=== PATIENT | female | born 1975 | race Hispanic/Latino ===

== ENCOUNTER 2020-01-05 16:43 | Emergency (ER) | payer OTHER ==
[~2020-01-05] VITALS: Ht 160 cm; Wt 96.2 kg
== END 2020-01-05 17:15 | disposition home or self-care (01) ==
LOC: ER 16:58
DX: U07.1 COVID-19 (principal); R50.9 Fever, unspecified; R05 Cough; J45.909 Unspecified asthma, uncomplicated
CPT/HCPCS: 99282

== ENCOUNTER 2020-01-07 16:52 | Emergency (ER) | payer OTHER ==
[~2020-01-07] VITALS: Ht 160 cm; Wt 96.2 kg
--- OUTSIDE RECORDS SUMMARY | 2020-01-07 17:01 | XMS REPORT | Continuity of Care Document ---
Author Author [facility] t Organization [facility] Address [address] [place] [address] Phone Unavailable Care Team Providers Care Director Money Name Role Phone NO, PCP PCP Unavailable Payers Payer Name Policy Type Policy Number Effective Date Expiration Date Vlad jameson Miscellaneous Hmo [id number] [facility] Problems Condition Name Condition Details Condition Category Status Onset Date Resolution Date Last Treatment Date Treating Clinician Comments Source Problem Condition Active [facility] Allergies, Adverse Reactions, Alerts Allergy Name Allergy Type Status Severity Reaction(s) Onset Date Inacti ve Date Treating Clinician Comments Source Penicillin Allergy to substance Active Mild HIVES 2020-01-05 00:00:00 [facility] Penicillins DA Active SV 2018-12-28 00:00:00 [facility] No Known Allergies DA Active U 2017-02-26 00:00:00 [facility] Social History Social Habit Start Date Stop Date Quantity Comments Source Sex Assigned At 1975 00:00:00 1975 00:00:00 Female [facility] Medications This patient has no known medications. Vital Signs Vital Name Observation Time Observation Value Comments Source Oxygen saturation by Pulse oximetry 2020-01-05 16:48:00 100 /min [facility] Weight 2020-01-05 16:48:00 212 [lb_av] [facility] BMI (Body Mass Index) 2020-01-05 16:48:00 37.6 kg/m2 [facility] Procedures This patient has no known procedures. Plan of Care Planned Activity Planned Date Details Comments Source Instructions COVID-19: 05/09/2019 [facility] Encounters Start Date/Time End Date/Time Encounter Type Admission Type Attendi [facility] Facility Care Department Encounter ID Source 2020-01-05 16:58:00 2020-01-05 17:15:00 Departed Emergency Room [facility] [id number] [facility] Results Test Description Test Time Test Comments Results Result Comments Source STREPTOCOCCUS PCR SCREEN 2019-02-14 09:05:00 Test Item STREPTOCOCCUS DYSGALACTIAE (test code = STREPGC) NEGATIVE FOR G/C N EGATIVE STREPA MOLECULAR (test code = STREPAMOL) NEGATIVE FOR GRP A NEGATIV E UR HCG [id number] 23:59:00* Test Item Value Reference Range Interpretation Comments UR HCG QUAL (test code = HCGQLU) NEGATIVE 43WEThis HCGQL test is NOT applicable for MALE patients.Check with nurse about probable order error.If Tumor Marker Test needed, nurse should order test "HCGTU"(Test #[id number]) - XR CHEST 1 [id number] 23:26:00 Name: JEAN LONDONOJO PICKARD [facility] : 1975 Age/S:43 /F [address] [facility] Unit#:[id number] Loc: [place] [address] Phys: Jarod Betancur MD Dis Date: PHONE #: [phone] Status: REG ER FAX #: [phone] Exam Date: 02/13/2019 Reason: CHEST PAIN EXAMS: CPT CODE: [id number] XR CHEST 1 V [id number] EXAM: - XR CHEST 1 V HISTORY: Chest pain. FINDINGS: Single AP view of the chest is provided. Heart size and vascularity are within normal limits. The lungs are clear of focal consolidation. No effusion, pneumothorax, or acute osseous abnormality. IMPRESSION: No radiographic evidence of acute cardiopulmonary process. at 2326 Reported and signed by: Artur Stein MD CC: Jarod Betancur MD Technologist: MAKAYLA BARRERA RT(R),CT Trnscrpt Data: 02/13/2019 (0871) [id number] Orig Print D/T: S: 02/13/2019 (5464) PAGE 1 Signed Report BASIC METABOLIC [id number] 22:24:00* Test Item Value Reference Range Interpretation Comments SODIUM (test code = NA) 138 mmol/L 135-148 N POTASSIUM (test code = K) 3.6 mmol/L 3.5-5.1 N CHLORIDE (test code = CL) 99 mmol/L 101-109 L CARBON DIOXIDE (test code = CO2) 25.4 mmol/L 21-32 N ANION GAP (test code = GAP) 17 mmol/L 10-20 N GLUCOSE (test code = GLU) 102 mg/dL 74-106 N BLOOD UREA NITROGEN (test code = BUN) 10 mg/dL 3-21 N GLOMERULAR FILTRATION RATE (test code = GFR) > 60 mL/min >=60 Estimated GFR by using Modified MDRD formula.Chronic kidney disease is defined as either kidney damageor GFR <60 mL/min/1.73 m2 for >3 months. CREATININE (test code = CREAT) 0.75 mg/dL 0.55-1.3 N BUN/CREATININE RATIO (test code = BUN/CREA) 13.3 10-20 N CALCIUM (test code = CA) 8.1 mg/dL 8.4-10.2 L HEPATIC FUNCTION [id number] 22:24:00* Test Item Value Reference Range Interpretation Comments TOTAL PROTEIN (test code = PROT) 7.3 g/dL 6.5-8.4 N ALBUMIN (test code = ALB) 3.4 g/dL 3.4-4.8 N GLOBULIN (test code = GLOB) 3.9 G/DL 1-10 N ALBUMIN/GLOBULIN RATIO (test code = A/G) 0.9 RATIO 0.75-1.50 N BILIRUBIN TOTAL (test code = BILT) 0.30 mg/dL 0.0-1.0 N BILIRUBIN DIRECT (test code = BILD) 0.10 mg/dL 0.0-0.30 N SGOT/AST (test code = AST) 15 U/L 6-32 N SGPT/ALT (test code = ALT) 26 U/L 12-78 N N ote: Change in REFERENCE RANGE due to new reagent method. ALKALINE PHOSPHATASE TOTAL (test code = ALKP) 115 U/L 38-126 N [id number] 22:24:00* Test Item Value Reference Range Interpretation Comments LIPASE (test code = LIP) 119 U/L 128-270 L [id number] 22:24:00* Test Item Value Reference Range Interpretation Comments MAGNESIUM (test code = MAG) 1.5 mg/dL 1.6-2.3 L BASIC METABOLIC [id number] 22:15:00* Test Item Value Reference Range Interpretation Comments SODIUM (test code = NA) 138 mmol/L 135-148 N POTASSIUM (test code = K) 3.6 mmol/L 3.5-5.1 N CHLORIDE (test code = CL) 99 mmol/L 101-109 L CARBON DIOXIDE (test code = CO2) 25.4 mmol/L 21-32 N ANION GAP (test code = GAP) 17 mmol/L 10-20 N GLUCOSE (test code = GLU) 102 mg/dL 74-106 N BLOOD UREA NITROGEN (test code = BUN) 10 mg/dL 3-21 N GLOMERULAR FILTRATION RATE (test code = GFR) > 60 mL/min >=60 Estimated GFR by using Modified MDRD formula.Chronic kidney disease is defined as either kidney damageor GFR <60 mL/min/1.73 m2 for >3 months. CREATININE (test code = CREAT) 0.75 mg/dL 0.55-1.3 N BUN/CREATININE RATIO (test code = BUN/CREA) 13.3 10-20 N CALCIUM (test code = CA) 8.1 mg/dL 8.4-10.2 L HEPATIC FUNCTION [id number] 22:15:00* Test Item Value Reference Range Interpretation Comments TOTAL PROTEIN (test code = PROT) gram/dL 6.4-8.2 ALBUMIN (test code = ALB) g/dL 3.4-5.0 GLOBULIN (test code = GLOB) g/dL 2.7-4.2 ALBUMIN/GLOBULIN RATIO (test code = A/G) 0.75-1.50 BILIRUBIN TOTAL (test code = BILT) mg/dL 0.2-1.2 BILIRUBIN DIRECT (test code = BILD) mg/dL 0.0-0.20 SGOT/AST (test code = AST) IUnit/L 15-37 SGPT/ALT (test code = ALT) U/L 10-69 ALKALINE PHOSPHATASE TOTAL (test code = ALKP) IUnit/L 45-117 [id number] 22:15:00* Test Item Value Reference Range Interpretation Comments LIPASE (test code = LIP) Unit/L 144-286 [id number] 22:15:00* Test Item Value Reference Range Interpretation Comments MAGNESIUM (test code = MAG) mg/dL 1.8-2.4 URINALYSIS [id number] 22:08:00* Test Item Value Reference Range Interpretation Comments UA COLOR (test code = COLU) YELLOW YELLOW UA APPEARANCE (test code = APPU) CLEAR CLEAR UA GLUCOSE DIPSTICK (test code = DGLUU) norm mg/dL NEGATIVE UA BILIRUBIN DIPSTICK (test code = BILU) NEGATIVE mg/dL NEGATIVE UA KETONE DIPSTICK (test code = KETU) neg mg/dL NEGATIVE UA SPECIFIC GRAVITY (test code = SGU) 1.015 1.001-1.035 UA BLOOD DIPSTICK (test code = LOUISE) 25 (1+) Sam/uL NEGATIVE A UA PH DIPSTICK (test code = BABAK) 5.0 5.0-8.0 UA PROTEIN DIPSTICK (test code = PROU) neg mg/dL Neg-15 UA UROBILINIOGEN DIPSTICK (test code = URO) norm mg/dL 0.0-0.2 UA NITRITE DIPSTICK (test code = MAYE) NEGATIVE NEGATIVE UA LEUKOCYTE ESTERASE DIPSTICK (test code = LEUU) neg uL NEGA TIVE UA WBC (test code = WBCU) 0-2 per HPF 0-5 UA RBC (test code = RBCU) 0-3 per HPF 0-5 UA EPITHELIAL CELLS (test code = EPIU) Few (2-5/hpf) per HPF Few UA BACTERIA (test code = BACU) TRACE per HPF NONE Urine Source? Clean CatchCBC W/O [id number] 22:00:00* Test Item Value Reference Range Interpretation Comments WHITE BLOOD CELL (test code = WBC) 6.8 K/mm3 4.5-12.5 N RED BLOOD CELL (test code = RBC) 4.11 mill/mm3 3.7-5.2 N HEMOGLOBIN (test code = HGB) 10.2 gram/dL 11.5-15.5 L HEMATOCRIT (test code = HCT) 33.8 % 36.0-46.0 L MEAN CELL VOLUME (test code = MCV) 82.2 fL 80-98 N MEAN CELL HGB (test code = MCH) 24.8 picogram 27.0-33.0 L MEAN CELL HGB CONCETRATION (test code = MCHC) 30.2 gram/dL 33.0-36. 0 L RED CELL DISTRIBUTION WIDTH (test code = RDW) 15.3 % 11.6-16. 2 N RED CELL DISTRIBUTION WIDTH SD (test code = RDW-SD) 46.7 fL 37 .0-51.0 N PLATELET COUNT (test code = PLT) 226 K/mm3 150-450 N MEAN PLATELET VOLUME (test code = MPV) 11.0 fL 6.7-11.0 N BASIC METABOLIC [id number] 22:11:00* Test Item Value Reference Range Interpretation Comments SODIUM (test code = NA) 135 mmol/L 136-145 L POTASSIUM (test code = K) 3.3 mmol/L 3.5-5.1 L CHLORIDE (test code = CL) 101 mmol/L 101-109 N CARBON DIOXIDE (test code = CO2) 25.3 mmol/L 21-32 N ANION GAP (test code = GAP) 12 mmol/L 10-20 N GLUCOSE (test code = GLU) 113 mg/dL 74-106 H BLOOD UREA NITROGEN (test code = BUN) 10 mg/dL 3-21 N GLOMERULAR FILTRATION RATE (test code = GFR) > 60 mL/min >=60 Estimated GFR by using Modified MDRD formula.Chronic kidney disease is defined as either kidney damageor GFR <60 mL/min/1.73 m2 for >3 months. CREATININE (test code = CREAT) 0.66 mg/dL 0.55-1.3 N BUN/CREATININE RATIO (test code = BUN/CREA) 15.2 10-20 N CALCIUM (test code = CA) 8.2 mg/dL 8.4-10.2 L HEPATIC FUNCTION [id number] 22:11:00* Test Item Value Reference Range Interpretation Comments TOTAL PROTEIN (test code = PROT) 7.0 g/dL 6.5-8.4 N ALBUMIN (test code = ALB) 3.2 g/dL 3.4-4.8 L GLOBULIN (test code = GLOB) 3.8 G/DL 1-10 N ALBUMIN/GLOBULIN RATIO (test code = A/G) 0.84 RATIO 0.75-1.50 N BILIRUBIN TOTAL (test code = BILT) 0.40 mg/dL 0.0-1.0 N BILIRUBIN DIRECT (test code = BILD) 0.10 mg/dL 0.0-0.30 N SGOT/AST (test code = AST) 19 U/L 6-32 N SGPT/ALT (test code = ALT) 28 U/L 12-78 N N ote: Change in REFERENCE RANGE due to new reagent method. ALKALINE PHOSPHATASE TOTAL (test code = ALKP) 83 U/L 38-126 N [id number] 22:11:00* Test Item Value Reference Range Interpretation Comments LIPASE (test code = LIP) 65 U/L 128-270 L URINALYSIS [id number] 22:04:00* Test Item Value Reference Range Interpretation Comments UA COLOR (test code = COLU) DARK YELLOW YELLOW A UA APPEARANCE (test code = APPU) HAZY CLEAR A UA GLUCOSE DIPSTICK (test code = DGLUU) norm mg/dL NEGATIVE UA BILIRUBIN DIPSTICK (test code = BILU) NEGATIVE mg/dL NEGATIVE UA KETONE DIPSTICK (test code = KETU) neg mg/dL NEGATIVE UA SPECIFIC GRAVITY (test code = SGU) 1.015 1.001-1.035 UA BLOOD DIPSTICK (test code = LOUISE) 10 (Trace) Sam/uL NEGATIVE A UA PH DIPSTICK (test code = BABAK) 7.0 5.0-8.0 UA PROTEIN DIPSTICK (test code = PROU) 15 (TRACE) mg/dL Neg-15 A UA UROBILINIOGEN DIPSTICK (test code = URO) 4 mg/dL (2+) mg/dL 0.0 -0.2 A UA NITRITE DIPSTICK (test code = MAYE) NEGATIVE NEGATIVE UA LEUKOCYTE ESTERASE DIPSTICK (test code = LEUU) 25 Mathew/uL (Tra ce) uL NEGATIVE A UA WBC (test code = WBCU) 0-5 per HPF 0-5 UA RBC (test code = RBCU) 0-3 per HPF 0-5 UA EPITHELIAL CELLS (test code = EPIU) Few (2-5/hpf) per HPF Few UA BACTERIA (test code = BACU) TRACE per HPF NONE UA MUCUS (test code = MUCU) MODERATE per LPF NONE-FEW A Urine Source? Clean CatchUR HCG [id number] 22:04:00* Test Item Value Reference Range Interpretation Comments UR HCG QUAL (test code = HCGQLU) NEGATIVE This HCGQL test is NOT applicable for MALE patients.Check with nurse about probable order error.If Tumor Marker Test needed, nurse should order test "HCGTU"(Test #[id number]) Urine Source? Clean CatchURINALYSIS [id number] 21:57:00* Test Item Value Reference Range Interpretation Comments UA COLOR (test code = COLU) DARK YELLOW YELLOW A UA APPEARANCE (test code = APPU) HAZY CLEAR A UA GLUCOSE DIPSTICK (test code = DGLUU) norm mg/dL NEGATIVE UA BILIRUBIN DIPSTICK (test code = BILU) NEGATIVE mg/dL NEGATIVE UA KETONE DIPSTICK (test code = KETU) neg mg/dL NEGATIVE UA SPECIFIC GRAVITY (test code = SGU) 1.015 1.001-1.035 UA BLOOD DIPSTICK (test code = LOUISE) 10 (Trace) Sam/uL NEGATIVE A UA PH DIPSTICK (test code = BABAK) 7.0 5.0-8.0 UA PROTEIN DIPSTICK (test code = PROU) 15 (TRACE) mg/dL Neg-15 A UA UROBILINIOGEN DIPSTICK (test code = URO) 4 mg/dL (2+) mg/dL 0.0 -0.2 A UA NITRITE DIPSTICK (test code = MAYE) NEGATIVE NEGATIVE UA LEUKOCYTE ESTERASE DIPSTICK (test code = LEUU) 25 Mathew/uL (Tra ce) uL NEGATIVE A UA WBC (test code = WBCU) per HPF 0-5 UA RBC (test code = RBCU) per HPF 0-5 UA EPITHELIAL CELLS (test code = EPIU) per HPF Few UA BACTERIA (test code = BACU) per HPF NONE Urine Source? Clean CatchUR HCG [id number] 21:57:00* Test Item Value Reference Range Interpretation Comments UR HCG QUAL (test code = HCGQLU) Urine Source? Clean CatchCBC W/O [id number] 21:47:00* Test Item Value Reference Range Interpretation Comments WHITE BLOOD CELL (test code = WBC) 8.7 K/mm3 4.5-12.5 N RED BLOOD CELL (test code = RBC) 4.35 mill/mm3 3.7-5.2 N HEMOGLOBIN (test code = HGB) 11.2 gram/dL 11.5-15.5 L HEMATOCRIT (test code = HCT) 37.2 % 36.0-46.0 N MEAN CELL VOLUME (test code = MCV) 85.5 fL 80-98 N MEAN CELL HGB (test code = MCH) 25.7 picogram 27.0-33.0 L MEAN CELL HGB CONCETRATION (test code = MCHC) 30.1 gram/dL 33.0-36. 0 L RED CELL DISTRIBUTION WIDTH (test code = RDW) 14.5 % 11.6-16. 2 N RED CELL DISTRIBUTION WIDTH SD (test code = RDW-SD) 46.6 fL 37 .0-51.0 N PLATELET COUNT (test code = PLT) 255 K/mm3 150-450 N MEAN PLATELET VOLUME (test code = MPV) 10.9 fL 6.7-11.0 N - XR CHEST 2 [id number] 22:00:00 Name: JO LONDONO [facility] : 1975 Age/S:43 /F [address] [facility] Unit#:[id number] Loc: [place] [address] Phys: Veena Sauceda INFUSION RN Dis Date: PHONE #: [phone] Status: REG ER FAX #: [phone] Exam Date: 08/09/2018 Reason: cough x 3 weeks EXAMS: CPT CODE: [id number] XR CHEST 2 V [id number] REASON FOR EXAM: cough x 3 weeks Exam Order Date: 08/09/2018 9:03 PM Ordering Yohana: Veena Sauceda NP PROCEDURE: - XR CHEST 2 V COMPARISON: FINDINGS: PA and lateral views of the chest show clear lungs without evidence of consolidation. No evidence of effusion. The heart size is within normal limits. Pulmonary vasculatures are unremarkable. The osseous structures are grossly intact. IMPRESSION: No active disease. at 2200 Reported and signed by: Pedro Pablo Suresh M.D. CC: Technologist: MAKAYLA BARRERA RT(R),CT Trnscrpt Data: 08/09/2018 (2199) Jhonatan Orig Print D/T: S: 08/09/2018 (9) PAGE 1 Signed Report
[2020-01-07] MEDS ORDERED: PANTOPRAZOLE 40 MG 10ML VIAL IV STA (17:09)
[2020-01-07] MEDS ORDERED: ONDANSETRON HCL INJ 2MG/ML 2ML 2 MG/ML VIAL IV STA (17:09)
[2020-01-07] MEDS ORDERED: SODIUM CHLORIDE 0.9% 1000ML 1,000 ML IV STA (17:09)
[2020-01-07] MEDS ORDERED: IBUPROFEN 800MG/ 200ML 800 MG in SODIUM CHLORIDE 0.9% 250ML 250 ML IV ONE (17:15)
[2020-01-07] MEDS ORDERED: IBUPROFEN 800 MG/8 ML VIAL IV ONE (17:38)
[2020-01-07] MEDS ORDERED: SODIUM CHLORIDE 0.9% 250ML 250 ML ONE (17:38)
--- NOTE | 2020-01-07 17:43 | NUR ---
TALKED TO GEOVANY REGARDING COVID RAPID HERE
[2020-01-07] MEDS ORDERED: DEXAMETHASONE SOD PHOS 10 MG/1 ML VIAL IV ONE (17:45)
[2020-01-07] MEDS ORDERED: CEFTRIAXONE SOD 1 GM/NS 50 ML 50 ML IV ONE (17:45)
[2020-01-07] MEDS ORDERED: AZITHROMYCIN 500MG/NS 250 ML 250 ML IV ONE (17:45)
[2020-01-07 17:50] LABS: BASOPHILS % 0.2 % (0.0-1.0); HEMATOCRIT 31.1 % (34.2-44.1); HEMOGLOBIN 8.7 g/dL (12.0-16.0); LYMPHOCYTES # (AUTO) 0.5 (1.0-3.2); LYMPHOCYTES % 9.8 % (18.0-39.1); MEAN CORPUSCULAR HEMOGLOBIN 20.7 pg (28-32); MONOCYTES # (AUTO) 0.3 (0.2-0.8); MONOCYTES % 5.3 % (4.4-11.3); NEUTROPHILS # (AUTO) 4.1 (2.1-6.9); NEUTROPHILS % 84.1 % (38.7-80.0); PLATELET COUNT 162 x10e3/uL (140-360); RED CELL DISTRIBUTION WIDTH 16.8 % (11.7-14.4)
[2020-01-07 18:07] LABS: STREPTOCOCCUS GRP A ANTIGEN NEGATIVE (NEGATIVE)
[2020-01-07 18:08] LABS: INR 0.86; PROTHROMBIN TIME 12.2 seconds (11.9-14.5)
[2020-01-07 18:13] LABS: INFLUENZAE A&B ANTIGEN (RAPID) NEGATIVE (NEGATIVE)
[2020-01-07 18:17] LABS: ALANINE AMINOTRANSFERASE 99 IU/L (0-55); ALBUMIN 3.5 g/dL (3.5-5.0); ALBUMIN/GLOBULIN RATIO 0.9 (0.8-2.0); ALKALINE PHOSPHATASE 95 IU/L (40-150); ANION GAP 13.2 mmol/L (8-16); BLOOD UREA NITROGEN 8 mg/dL (7-26); BUN/CREATININE RATIO 12 (6-25); CALCIUM 8.5 mg/dL (8.4-10.2); CARBON DIOXIDE 25 mmol/L (22-29); CHLORIDE 103 mmol/L (98-107); CREATINE KINASE 55 IU/L (29-168); CREATININE, SERUM 0.68 mg/dL (0.57-1.11); EST GLOMERULAR FILTRATION RATE > 60 ML/MIN (60-); GLUCOSE 127 mg/dL (74-118); MAGNESIUM 1.7 MG/DL (1.3-2.1); POTASSIUM 3.2 mmol/L (3.5-5.1); SODIUM 138 mmol/L (136-145)
[2020-01-07 18:21] LABS: PARTIAL THROMBOPLASTIN TIME 34.8 seconds (23.8-35.5)
--- NOTE | 2020-01-07 18:25 | Emergency Department Note ---
History of Present Illnes History of Present Illness Chief Complaint: COVID PUI History of Present Illness This is a 44 year old female with 6 day h/o of fevers myalgias and n/v . Historian: Patient Arrival Mode: Car Onset (how long ago): day(s) (6) Radiation: Reports non-radiation Severity: moderate Onset quality: gradual Duration (how long): week(s) (1) Timing of current episode: constant Progression: worsening Chronicity: new Context: Reports recent illness Relieving factors: none Exacerbating factors: none Associated symptoms: Reports shortness of breath Treatments prior to arrival: none Past Medical/Family History Physician Review I have reviewed the patient's past medical and family history. Any updates have been documented here. Past Medical History Recent Fever: Yes Clinical Suspicion of Infectio: Yes New/Unexplained Change in Ment: No Past Medical History: Asthma Past Surgical History: Tubal Ligation, Social History Smoking Cessation: Never Smoker Alcohol Use: None Any Illegal Drug Use: No Review of Systems Review of Systems Constitutional: Reports fever, Reports malaise EENTM: Reports no symptoms Cardiovascular: Reports no symptoms Respiratory: Reports no symptoms Gastrointestinal: Reports nausea, Reports vomiting Genitourinary: Reports no symptoms Musculoskeletal: Reports no symptoms Integumentary: Reports no symptoms Neurological: Reports no symptoms Psychological: Reports no symptoms Endocrine: Reports no symptoms Hematological/Lymphatic: Reports no symptoms Physical Exam Related Data Allergies: Coded Allergies: Penicillins (Verified Allergy, Mild, HIVES, 01/05/20) Triage Vital Signs Vital Signs Date Time Temp Pulse Resp B/P (MAP) Pulse Ox O2 Delivery O2 Flow Rate FiO2 01/07/20 17:01 103.0 100 24 108/64 95 Room Air Vital signs reviewed: Yes Physical Exam CONSTITUTIONAL Constitutional: Present morbidly obese, Present ill appearing HENT HENT: Present normocephalic, Present atraumatic, Present oropharynx clear/moist, Present nose normal HENT L/R: Present left ext ear normal, Present right ext ear normal EYES Eyes: Reports PERRL, Reports conjunctivae normal NECK Neck: Present ROM normal PULMONARY Pulmonary: Present effort normal, Present breath sounds normal CARDIOVASCULAR Cardiovascular: Present regular rhythm, Present heart sounds normal, Present capillary refill normal, Present normal rate GASTROINTESTINAL Abdominal: Present soft, Present nontender, Present bowel sounds normal GENITOURINARY Genitourinary: Present exam deferred SKIN Skin: Present warm, Present dry MUSCULOSKELETAL Musculoskeletal: Present ROM normal NEUROLOGICAL Neurological: Present alert, Present oriented x 3, Present no gross motor or sensory deficits PSYCHOLOGICAL Psychological: Present mood/affect normal, Present judgement normal Results Laboratory Result Diagram: 01/07/20 1729 01/07/20 1729 Laboratory Laboratory Tests Test 01/07/20 17:32 01/07/20 17:29 Influenza Virus Types A,B Antigen Negative (NEGATIVE) Group A Streptococcus Screen Negative (NEGATIVE) White Blood Count 4.88 x10e3/uL (4.8-10.8) Red Blood Count 4.20 x10e6/uL (3.6-5.1) Hemoglobin 8.7 g/dL (12.0-16.0) Hematocrit 31.1 % (34.2-44.1) Mean Corpuscular Volume 74.0 fL (81-99) Mean Corpuscular Hemoglobin 20.7 pg (28-32) Mean Corpuscular Hemoglobin Concent 28.0 g/dL (31-35) Red Cell Distribution Width 16.8 % (11.7-14.4) Platelet Count 162 x10e3/uL (140-360) Neutrophils (%) (Auto) 84.1 % (38.7-80.0) Lymphocytes (%) (Auto) 9.8 % (18.0-39.1) Monocytes (%) (Auto) 5.3 % (4.4-11.3) Eosinophils (%) (Auto) 0.0 % (0.0-6.0) Basophils (%) (Auto) 0.2 % (0.0-1.0) Neutrophils # (Auto) 4.1 (2.1-6.9) Lymphocytes # (Auto) 0.5 (1.0-3.2) Monocytes # (Auto) 0.3 (0.2-0.8) Eosinophils # (Auto) 0.0 (0.0-0.4) Basophils # (Auto) 0.0 (0.0-0.1) Absolute Immature Granulocyte (auto 0.03 x10e3/uL (0-0.1) Sodium Level 138 mmol/L (136-145) Potassium Level 3.2 mmol/L (3.5-5.1) Chloride Level 103 mmol/L (98-107) Carbon Dioxide Level 25 mmol/L (22-29) Anion Gap 13.2 mmol/L (8-16) Blood Urea Nitrogen 8 mg/dL (7-26) Creatinine 0.68 mg/dL (0.57-1.11) Estimat Glomerular Filtration Rate > 60 ML/MIN (60-) BUN/Creatinine Ratio 12 (6-25) Glucose Level 127 mg/dL (74-118) Calcium Level 8.5 mg/dL (8.4-10.2) Magnesium Level 1.7 MG/DL (1.3-2.1) Total Bilirubin 0.3 mg/dL (0.2-1.2) Aspartate Amino Transf (AST/SGOT) 102 IU/L (5-34) Alanine Aminotransferase (ALT/SGPT) 99 IU/L (0-55) Alkaline Phosphatase 95 IU/L (40-150) Creatine Kinase 55 IU/L (29-168) B-Type Natriuretic Peptide 15.2 pg/mL (0-100) Total Protein 7.2 g/dL (6.5-8.1) Albumin 3.5 g/dL (3.5-5.0) Globulin 3.7 g/dL (2.3-3.5) Albumin/Globulin Ratio 0.9 (0.8-2.0) Imaging Imaging results reviewed: Yes Impressions [place] [address] Patient Name: JO PENA MR #: [id number] : 1975 Age/Sex: 44/F Req #: [id number] Adm Physician: Ordered by: CHRISTINA GARCIA MD Report #: [id number] Location: ER Room/Bed: Procedure: [id number] DX/CHEST SINGLE (PORTABLE) Exam Date: 01/07/20 Exam Time: 1800 REPORT STATUS: Signed EXAMINATION: CHEST SINGLE (PORTABLE) INDICATION: COUGH F/C, N/V, COUGH COMPARISON: None FINDINGS: TUBES and LINES: None. LUNGS: Normal lung volumes. There is multifocal patchy airspace opacities throughout both lungs. PLEURA: No pleural effusion or pneumothorax. HEART AND MEDIASTINUM: The cardiomediastinal silhouette is unremarkable. BONES AND SOFT TISSUES: No acute osseous lesion. Soft tissues are unremarkable. UPPER ABDOMEN: No free air under the diaphragm. IMPRESSION: Multifocal patchy airspace opacities throughout both lungs, most compatible with multifocal pneumonia. Signed by: Yony Maradiaga MD on 01/07/2020 6:50 PM Dictated By: YONY MARADIAGA MD 49 Transcribed By: RADHA on 01/07/201849 COPY TO: CHRISTINA GARCIA MD~ Assessment & Plan Medical Decision Making MDM Diff Dx : URI, COVID-19 URI, PNA, sepsis, PE Reassessment Reassessment time: 18:[address] Valdez accepted patient ST BS Assessment & Plan Final Impression: (1) Hypoxia (2) COVID-19 Last Vital Signs Date Time Temp Pulse Resp B/P (MAP) Pulse Ox O2 Delivery O2 Flow Rate FiO2 01/07/20 17:01 103.0 100 24 108/64 95 Room Air Medications in the ED Pantoprazole Sodium 40 mg ONCE STAT IV Last administered on 01/07/20at 17:56; Admin Dose 40 MG; Start 01/07/20 at 17:09; Stop 01/07/20 at 17:16; Status DC Ondansetron HCl 4 mg ONCE STAT IV Last administered on 01/07/20at 17:56; Admin Dose 4 MG; Start 01/07/20 at 17:09; Stop 01/07/20 at 17:16; Status DC Sodium Chloride 1,000 ml @ 0 mls/hr Q0M STAT IV Last administered on 0at 17:56; Admin Dose 999 MLS/HR; Start 01/07/20 at 17:09; Stop 01/07/20 at 17:15; Status DC Ibuprofen 800 mg/ Sodium Chloride 450 ml @ 500 mls/hr ONCE ONCE IV Last administered on 01/07/20at 17:56; Admin Dose 500 MLS/HR; Start 01/07/20 at 17:15; Stop 01/07/20 at 18:08; Status DC Sodium Chloride 250 ml @ ud STK-MED ONCE .ROUTE ; Start 01/07/20 at 17:38; Stop 01/07/20 at 17:31; Status DC Ibuprofen 800 mg STK-MED ONCE IV ; Start 01/07/20 at 17:38; Stop 01/07/20 at 17:32; Status DC Dexamethasone Sodium Phosphate 10 mg ONCE ONCE IV Last administered on 01/07/20at 18:08; Admin Dose 10 MG; Start 01/07/20 at 17:45; Stop 01/07/20 at 17:48; Status DC Ceftriaxone Sodium 50 ml @ 100 mls/hr ONCE ONCE IV Last administered on 01/07/20at 18:08; Admin Dose 100 MLS/HR; Start 01/07/20 at 17:45; Stop 01/07/20 at 18:14; Status DC Azithromycin 250 ml @ 200 mls/hr NOW ONCE IV ; Start 01/07/20 at 17:45; Stop 01/07/20 at 18:59 ARACELY BOYER DO Jan 07, 2020 18:25
--- NOTE | 2020-01-07 18:53 | Diagnostic Imaging Report ---
EXAMINATION: CHEST SINGLE (PORTABLE) INDICATION: COUGH F/C, N/V, COUGH COMPARISON: None FINDINGS: TUBES and LINES: None. LUNGS: Normal lung volumes. There is multifocal patchy airspace opacities throughout both lungs. PLEURA: No pleural effusion or pneumothorax. HEART AND MEDIASTINUM: The cardiomediastinal silhouette is unremarkable. BONES AND SOFT TISSUES: No acute osseous lesion. Soft tissues are unremarkable. UPPER ABDOMEN: No free air under the diaphragm. IMPRESSION: Multifocal patchy airspace opacities throughout both lungs, most compatible with multifocal pneumonia. Signed by: Amira De La Cruz MD on 01/07/2020 6:50 PM
== END 2020-01-07 20:27 | disposition other institution (70) ==
LOC: ER 16:59
DX: U07.1 COVID-19 (principal); R09.02 Hypoxemia; R50.9 Fever, unspecified
CPT/HCPCS: 36415; 71045; 80053; 82550; 82553; 83518; 83735; 83880; 84484; 85025; 85610; 85730; 87040; 87070; 87400; 93005; 99284; C9113; J0456; J0696; J1100; J2405; J7030; J7050; U0002

== ENCOUNTER 2020-01-24 11:31 | Emergency (ER) | payer OTHER ==
[~2020-01-24] VITALS: Ht 160 cm; Wt 96.2 kg
[2020-01-24] MEDS ORDERED: PROAIR HFA INH8.5 GM IH (11:52)
[2020-01-24] MEDS ORDERED: ALBUTEROL2.5 MG/3 M NEB (11:52)
[2020-01-24 14:42] VITALS: BP 121/64
== END 2020-01-24 14:46 | disposition home or self-care (01) ==
LOC: ER 11:50
DX: J02.8 Acute pharyngitis due to other specified organisms (principal); J45.909 Unspecified asthma, uncomplicated
CPT/HCPCS: 70360; 83518; 87070; 99283

== ENCOUNTER 2020-10-10 14:47 | Emergency (ER) | payer OTHER ==
[~2020-10-10] VITALS: Ht 160 cm; Wt 96.2 kg
[~2020-10-10 14:47] MED LIST: ALBUTEROL2.5 MG/3 M NEB; PROAIR HFA INH8.5 GM IH
[2020-10-10] MEDS ORDERED: ZITHROMAX1 GM PO (15:06)
== END 2020-10-10 15:37 | disposition home or self-care (01) ==
LOC: ER 14:54
DX: R50.9 Fever, unspecified (principal); J02.8 Acute pharyngitis due to other specified organisms; J45.909 Unspecified asthma, uncomplicated
CPT/HCPCS: 99283

== ENCOUNTER 2020-11-01 16:01 | Emergency (ER) | payer OTHER ==
[~2020-11-01] VITALS: Ht 160 cm; Wt 92.5 kg
[~2020-11-01 16:01] MED LIST changes: +ZITHROMAX1 GM PO
== END 2020-11-01 17:52 | disposition home or self-care (01) ==
LOC: ER 16:13
DX: N89.8 Other specified noninflammatory disorders of vagina (principal)
CPT/HCPCS: 87210; 87491; 87591; 99283

== ENCOUNTER 2021-02-07 10:38 | Emergency (ER) | payer OTHER ==
[~2021-02-07] VITALS: Ht 160 cm; Wt 92.5 kg
[2021-02-07] MEDS ORDERED: ALBUTEROL/IPRATROPIUM 3 ML NEB NEB ONE (10:45)
[2021-02-07] MEDS ORDERED: METHYLPREDNISOLONE SOD SUCC 125 MG/2ML VIAL IV ONE (10:45)
[2021-02-07 10:55] LABS: BASOPHILS # (AUTO) 0.1 (0.0-0.1); EOSINOPHILS # (AUTO) 0.1 (0.0-0.4); EOSINOPHILS % 2.2 % (0.0-6.0); HEMATOCRIT 33.5 % (34.2-44.1); HEMOGLOBIN 8.9 g/dL (12.0-16.0); LYMPHOCYTES # (AUTO) 0.7 (1.0-3.2); LYMPHOCYTES % 11.6 % (18.0-39.1); MEAN CORPUSCULAR HEMOGLOBIN 19.2 pg (28-32); MEAN CORPUSCULAR HGB CONC 26.6 g/dL (31-35); MEAN CORPUSCULAR VOLUME 72.2 fL (81-99); MONOCYTES # (AUTO) 0.6 (0.2-0.8); NEUTROPHILS # (AUTO) 4.3 (2.1-6.9); PLATELET COUNT 293 x10e3/uL (140-360); RED BLOOD COUNT 4.64 x10e6/uL (3.6-5.1); RED CELL DISTRIBUTION WIDTH 18.4 % (11.7-14.4)
[2021-02-07] MEDS ORDERED: LORAZEPAM 1 MG TAB PO ONE (11:00)
[2021-02-07] MEDS ORDERED: ONDANSETRON HCL 4 MG ORAL DISINTEGRATING TAB PO ONE (11:00)
[2021-02-07] MEDS ORDERED: ACETAMINOPHEN 325 MG TAB PO STA (11:22)
[2021-02-07 11:36] LABS: ALBUMIN 3.7 g/dL (3.5-5.0); ANION GAP 17.2 mmol/L (8-16); CALCIUM 8.7 mg/dL (8.4-10.2); CREATININE, SERUM 0.7 mg/dL (0.57-1.11); POTASSIUM 3.2 mmol/L (3.5-5.1)
[2021-02-07] MEDS ORDERED: SODIUM CHLORIDE 0.9% IV SCH (12:00)
[2021-02-07] MEDS ORDERED: PREDNISONE20 MG PO (13:08)
[2021-02-07] MEDS ORDERED: ALBUTEROL0.63 MG/3 NEB (13:08)
[2021-02-07] MEDS ORDERED: CASIRIVIMAB/IMDEVIMAB 10 ML in SODIUM CHLORIDE 0.9% 100 ML IV ONE (13:15)
[2021-02-07 14:57] VITALS: BP 139/72
== END 2021-02-07 15:00 | disposition home or self-care (01) ==
LOC: ER 10:40
DX: U07.1 COVID-19 (principal); R06.02 Shortness of breath; R50.9 Fever, unspecified; J45.909 Unspecified asthma, uncomplicated; Z87.01 Personal history of pneumonia (recurrent)
CPT/HCPCS: 36415; 71045; 80053; 83605; 85025; 87040; 94640; 94799; 99284; J2930; J7030; J7050; U0002

== ENCOUNTER 2021-05-06 20:25 | Emergency (ER) | payer OTHER ==
[~2021-05-06] VITALS: Ht 160 cm; Wt 97.5 kg
[~2021-05-06 20:25] MED LIST changes: +ALBUTEROL0.63 MG/3 NEB; +PREDNISONE20 MG PO
[2021-05-06 22:11] VITALS: BP 124/65
== END 2021-05-06 22:20 | disposition home or self-care (01) ==
LOC: ER 20:35
DX: R05.9 Cough, unspecified (principal); J40 Bronchitis, not specified as acute or chronic; J06.9 Acute upper respiratory infection, unspecified; Z20.822 Contact with and (suspected) exposure to COVID-19
CPT/HCPCS: 99283; U0002